=== PATIENT | male | born 1950 | race Native Hawaiian/Other Pacific Islander ===

== ENCOUNTER 2017-07-23 10:19 | Inpatient (IN) | payer OTHER ==
[~2017-07-23] VITALS: Ht 180.3 cm; Wt 81.0 kg
[2017-07-23] VITALS (15 sets, daily range): BP systolic 103–129; BP diastolic 65–81; TEMP 97.8–99.8; Ht 180.3 cm; Wt 81.0 kg
[~2017-07-23 10:19] MED LIST: ANTI-DIARRHE2 MG PO; BAYER ASPIRIN E81 MG PO; CARAFATE1 GM PO; CLOPIDOGREL75 MG PO; DIVA500T2 PO; KEPPRA750 MG PO; LACTSYP31 PO; LIPITOR10 MG PO; MAPAP ARTHRI650 MG PO; NITROSTAT0.4 MG SL; ONDA4TAB3 PO; PHENYTOIN EX100 MG PO; TRAM50TA PO; VENL37.511 PO; VENLAFAXINE75 M2 PO
[2017-07-23] MEDS ORDERED: DIVA500T2 PO (11:47)
[2017-07-23] MEDS ORDERED: DIVALPROEX500 MG PO (11:47)
[2017-07-23] MEDS ORDERED: ABILIFY 10MG TAB PO (11:47)
[2017-07-23] MEDS ORDERED: RISP1TAB PO (11:47)
[2017-07-23 13:21] LABS: PLATELET COUNT 232 K/uL (142-355)
[2017-07-23 13:37] LABS: PARTIAL THROMBOPLASTIN TIME 27.5 SECONDS (24.5-33.6)
[2017-07-23 13:44] LABS: POTASSIUM 4.1 mmol/L (3.6-5.2)
[2017-07-24] VITALS (32 sets, daily range): BP systolic 79–144; BP diastolic 48–100; TEMP 97.7–103.7
[2017-07-24 09:20] LABS: POTASSIUM 3.1 mmol/L (3.6-5.2)
[2017-07-24 09:33] LABS: PLATELET COUNT 202 K/uL (142-355)
[2017-07-24 16:56] LABS: PLATELET COUNT 172 K/uL (142-355)
[2017-07-24 17:04] LABS: SODIUM 135 mmol/L (136-145)
[2017-07-25] VITALS (25 sets, daily range): BP systolic 60–127; BP diastolic 37–112; TEMP 99–100.7
[2017-07-25 06:33] LABS: POTASSIUM 5.7 mmol/L (3.6-5.2)
== END 2017-07-25 08:30 | disposition expired | DRG 166 ==
LOC: ICU 10:19
PROVIDERS: Specialist; ADMIT Emergency Medicine
PROC: 05HM33Z Insertion of Infusion Device into Right Internal Jugular Vein, Percutaneous Approach (ICD-10-PCS; principal; 2017-07-24)
PROC: 0B9F8ZX Drainage of Right Lower Lung Lobe, Via Natural or Artificial Opening Endoscopic, Diagnostic (ICD-10-PCS; 2017-07-24)
PROC: B543ZZA Ultrasonography of Right Jugular Veins, Guidance (ICD-10-PCS; 2017-07-24)
PROC: 0BC78ZZ Extirpation of Matter from Left Main Bronchus, Via Natural or Artificial Opening Endoscopic (ICD-10-PCS; 2017-07-24)
PROC: 0BC38ZZ Extirpation of Matter from Right Main Bronchus, Via Natural or Artificial Opening Endoscopic (ICD-10-PCS; 2017-07-24)
PROC: 0BC28ZZ Extirpation of Matter from Carina, Via Natural or Artificial Opening Endoscopic (ICD-10-PCS; 2017-07-24)
PROC: 5A1935Z Respiratory Ventilation, Less than 24 Consecutive Hours (ICD-10-PCS; 2017-07-25)
PROC: 0BH17EZ Insertion of Endotracheal Airway into Trachea, Via Natural or Artificial Opening (ICD-10-PCS; 2017-07-25)
DX: J69.0 Pneumonitis due to inhalation of food and vomit (principal); J96.00 Acute respiratory failure, unspecified whether with hypoxia or hypercapnia; G40.802 Other epilepsy, not intractable, without status epilepticus; F31.89 Other bipolar disorder; J15.212 Pneumonia due to Methicillin resistant Staphylococcus aureus; R41.82 Altered mental status, unspecified; I87.8 Other specified disorders of veins; I48.91 Unspecified atrial fibrillation; J44.9 Chronic obstructive pulmonary disease, unspecified; I25.10 Atherosclerotic heart disease of native coronary artery without angina pectoris; E11.9 Type 2 diabetes mellitus without complications; Z86.73 Personal history of transient ischemic attack (TIA), and cerebral infarction without residual deficits; K21.9 Gastro-esophageal reflux disease without esophagitis; I10 Essential (primary) hypertension; D72.818 Other decreased white blood cell count; E78.4 Other hyperlipidemia
CPT/HCPCS: 31500; 36415; 36591; 36600; 80048; 80053; 81000; 82550; 82553; 82805; 82962; 83605; 83615; 84484; 85027; 85610; 85730; 87040; 87070; 87077; 87101; 87185; 87186; 87205; 87206; 88108; 92950; 93005; 94002; 94640; 94664; 94760; C1768; J0132; J0171; J0330; J0461; J1644; J1885; J1940; J1956; J2001; J2060; J2550; J2704; J2930; J3490